=== PATIENT | male | born 1975 | race Caucasian/White ===

== ENCOUNTER → 2018-08-04 | Outpatient (CLI) | payer MEDICAID ==
--- NOTE | 2018-08-04 14:08 | CPEEG ---
4-HOUR VIDEO EEG DATE OF STUDY: 08/04/2018 DATE OF INTERPRETATION: August 04, 2018 INTERPRETATION: This 4-hour video EEG recording is normal. There were no potentially epileptogenic abnormalities present in the awake or sleep recordings. During the video EEG monitoring session, the patient did not have any clinical events. If there is continued clinical concern, referral to inpatient video EEG monitoring could be considere d. REPORT: This 4-hour video EEG contains 10 Hz alpha activity to the posterior head regions. There wa s no abnormal activation at rest, during photic stimulation or hyperventilation. The patient became drowsy and fell into sustained sleep during the study. There was no abnormal activation during drows iness, sleep, or during times of arousal. The patient did not have any clinical events during the vi altagracia EEG monitoring session. /[id number]/MODL
== END ==
LOC: FCPNEURO 07:55
PROVIDERS: ATTEND Psychiatry & Neurology Neurology
DX: R46.89 Other symptoms and signs involving appearance and behavior (principal)

== ENCOUNTER → 2018-08-17 | Outpatient (CLI) | payer MEDICAID ==
[~2018-08-17] MED LIST: GADOBUTROL 10 ML VIAL IVP ONE
== END ==
LOC: FIMAGING 07:44
PROVIDERS: ATTEND Psychiatry & Neurology Neurology
DX: R46.89 Other symptoms and signs involving appearance and behavior (principal)
CPT/HCPCS: A9585